=== PATIENT | female | born 1975 | race Caucasian/White ===

== ENCOUNTER 2025-06-06 11:27 | Emergency (ER) | payer MEDICARE, MEDICAID, SELFPAY ==
[2025-06-06 11:26] VITALS: BP 156/69
[2025-06-06 11:27] VITALS: BP 156/69; PULSE 48; TEMP 36.6; O2SAT 100; BMI 29.1
[2025-06-06 11:31] VITALS: PULSE 69
--- NOTE | 2025-06-06 11:31 | ECG_ITS ---
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 Measurements Intervals [place] Rate: 53 P: 66 [place]: 134 QRS: 38 QRSD: 94 T: 24 QT: 432 QTc: 415 Interpretive Statements 1100 Sinus rhythm 1102 Sinus arrhythmia 4068 Nonspecific Twave abnormality 9130 borderline ECG No previous ECG available for comparison Electronically Signed On 06-06-2025 20:38:21 EDT by VICTORINO FUNES M.D.
--- OUTSIDE RECORDS SUMMARY | 2025-06-06 11:32 | XMS_ITS | Encounter Summary ---
Author Organization [facility] Address [address] [place] [address] Care Team Providers Care Narcotics Investigator Name Role Phone Michael Bobby DO, David Grant Primary Care Pro vider Rosie Calzada MD Unavailable [phone] Ryder Quintanilla MD Unavailable [phone] Derick Roberson DO Unavailable Ryder Quintanilla MD Primary Care Provider [facility] [place] [facility] Unavailable Unavailable Nery Stahl MD Unavailable Source Comments In the event this information is protected by the Federal Confidentiality of Alcohol and Drug AbusePatient Records regulations: The Federal rules restrict any use of the information to criminally investigate or prosecute any alcohol or drug abuse patient.[facility] Encounter Details Date Type Department Care Team (Late st Contact Info) Description 04/18/2022 Patient Msg Cardiology [address] [place] [address] Derick Roberson DO [address] [place] [address] skin biopsy Social History Tobacco Use Types Packs/Day Years Used Date Smoking Tobacco: Some Days Cigarettes Started: 1990 Smokeless Tobacco: Never Alcohol Use Standard Drinks/Week Comments Not Currently 6 (1 standard drink = 0.6 oz pur e alcohol) 1-2 times weekly PHQ-2 Answer Date Recorded PHQ-2 score 5 03/07/2022 Area Deprivation Index Answer Date John rded National Score (1-100), lower number is lower ri sk Not on file 06/14/2021 State Score (1-10), lower number is lower risk N ot on file 06/14/2021 Data from: https://www.neighborhoodatlas.medicine.[facility].edu/. Last address used for calculation Not on file 06/14/2021 Comments No Sex and Gender Information Value Date Recorded Sex Assigned at Female 10/09/2021 11:25 PM EST Legal Sex Female 10:05 AM EST Gender Identity Female 10/09/2021 11:25 PM EST Sexual Orientation Straight 10/09/2021 11 :25 PM EST COVID-19 Exposure Response Date Recorded In the last 10 days, have yo u been in contact with someone who was confirmed or suspected to have Coronavirus/COVID-19? No / Unsure 04/02/2022 12:41 PM EDT documented as of this encounter Plan of Treatment Upcoming Encounters Date Type Department Care Team (Late st Contact Info) Description 06/22/2025 3:00 PM EDT Office Visit Neurology [address] [id number] Tristan Diaz MD [address] [place] [address] Muscle Weakness documented as of this encounter Visit Diagnoses Not on filedocumented in this encounter Care Teams Narcotics Investigator Relationship Specialty Start Date End Date Primitivo Rodriguez Jr., DO [address] [place] [phone] PCP - General Rheumatology 12/28/21 12/15/23 Rosie Calzada MD [address] [place] [phone] PCP - Endocrinology Endocrinology 12/28/21 Ryder Quintanilla MD [address] [place] [phone] PCP - Resident Neurology 12/28/21 07/27/24 Ryder Quintanilla MD [address] [place] [address] PCP - General Neurology 12/16/23 Derick Roberson DO [address] [place] [address] Primary Staff Physician Cardiology 12/28/21 [facility] [place] [facility] [address] [facility], [address] Referring 12/16/23 Nery Stahl MD [address] [facility] [place] [address] Neurology 07/28/24 documented as of this encounter
--- OUTSIDE RECORDS SUMMARY | 2025-06-06 11:32 | XMS_ITS | Encounter Summary ---
Author Organization [facility] Address [address] [place] [address] Care Team Providers Care Hospital Ward Clerk Name Role Phone Michael Bobby DO, David Grant Primary Care Pro vider Rosie Calzada MD Unavailable [phone] Ryder Quintanilla MD Unavailable [phone] Derick Roberson DO Unavailable Ryder Quintanilla MD Primary Care Provider [facility] [place] [facility] Unavailable Unavailable Nery Stahl MD Unavailable Source Comments In the event this information is protected by the Federal Confidentiality of Alcohol and Drug AbusePatient Records regulations: The Federal rules restrict any use of the information to criminally investigate or prosecute any alcohol or drug abuse patient.[facility] Encounter Details Date Type Department Care Team (Late st Contact Info) Description 03/01/2022 Get Medical Advice Cardiology [address] [place] [address] Derick Roberson DO [address] [place] [address] Recent EKG findings Social History Tobacco Use Types Packs/Day Years Used Date Smoking Tobacco: Some Days Cigarettes Started: 1990 Smokeless Tobacco: Never Alcohol Use Standard Drinks/Week Comments Not Currently 6 (1 standard drink = 0.6 oz pur e alcohol) 1-2 times weekly PHQ-2 Answer Date Recorded PHQ-2 score 6 09/24/2021 Area Deprivation Index Answer Date John rded National Score (1-100), lower number is lower ri sk Not on file 06/14/2021 State Score (1-10), lower number is lower risk N ot on file 06/14/2021 Data from: https://www.neighborhoodatlas.medicine.[facility]/. Last address used for calculation Not on [...] suspected to have Coronavirus/COVID-19? No / Unsure 03/04/2022 11:05 AM EDT documented as of this encounter Miscellaneous Notes * Telephone Encounter - Romina Gay - 03/01/2022 4:13 PM EDT Images from the original note were not included. EKG Tracing saved in EP Outside Report Uploaded to Scanned Docs Romina Sylvester [employer] Transportation Director documented in this encounter Plan of Treatment Upcoming Encounters Date Type Department Care Team (Late st Contact Info) Description 06/22/2025 3:00 PM EDT Office Visit Neurology [address] [place] [address] Tristan Diaz MD [address] [place] [address] Muscle Weakness documented as of this encounter Visit Diagnoses Not on filedocumented in this encounter Care Teams Hospital Ward Clerk Relationship Specialty Start Date End Date Primitivo Rodriguez Efra Bobby, DO [address] [place] [phone] PCP - General Rheumatology 12/28/21 12/15/23 Rosie Calzada MD [address] [facility] [address] [place] [address] PCP - Endocrinology Endocrinology 12/28/21 Ryder Quintanilla MD [address] [phone] PCP - Resident Neurology 12/28/21 07/27/24 Ryder Quintanilla MD [address] [place] [address] PCP - General Neurology 12/16/23 Derick Roberson DO [address] [place], [place] [phone] Primary Staff Physician Cardiology 12/28/21 [facility] [place] [facility] [address] [facility], [address] Referring 12/16/23 Nery Stahl MD [address] [place] [address] Neurology 07/28/24 documented as of this encounter
--- OUTSIDE RECORDS SUMMARY | 2025-06-06 11:32 | XMS_ITS | Encounter Summary ---
Author Organization [facility] Address [address] [place] [address] Care Team Providers Care Ruling Technician Name Role Phone Michael Bobby DO, David Grant Primary Care Pro vider Rosie Calzada MD Unavailable [phone] Ryder Quintanilla MD Unavailable Derick Roberson DO Unavailable [phone] Ryder Quintanilla MD Primary Care Provider [facility] [place] [facility] Unavailable Unavailable Nery Stahl MD Unavailable Source Comments In the event this information is protected by the Federal Confidentiality of Alcohol and Drug AbusePatient Records regulations: The Federal rules restrict any use of the information to criminally investigate or prosecute any alcohol or drug abuse patient.[facility] Encounter Details Date Type Department Care Team (Late st Contact Info) Description 01/14/2022 Get Medical Advice Cardiology [address] [place] [address] Derick Roberson DO [address] [place] [address] Tilt table results and ECG Social History Tobacco Use Types Packs/Day Years Used Date Smoking Tobacco: Every Day Cigarettes 0.5 34.5 Started: 1991 Smokeless Tobacco: Never Alcohol Use Standard Drinks/Week Comments Yes 6 (1 standard drink = 0.6 oz pur e alcohol) 1-2 times weekly PHQ-2 Answer Date Recorded PHQ-2 score 6 09/24/2021 Area Deprivation Index Answer Date John rded National Score (1-100), lower number is lower ri sk Not on file 06/14/2021 State Score (1-10), lower number is lower risk N ot on file 06/14/2021 Data from: https://www.neighborhoodatlas.medicine.[facility].edu/. Last address used for calculation Not on file 06/14/2021 Comments No Sex and Gender Information Value Date Recorded Sex Assigned at Female 10/09/2021 11:25 PM EST Legal Sex Female 10:05 AM EST Gender Identity Female 10/09/2021 11:25 PM EST Sexual Orientation Straight 10/09/2021 11 :25 PM EST COVID-19 Exposure Response Date Recorded In the last month, have you been in contact with someone who was confirmed or suspected to have Coronavirus / COVID-19? No / Unsure 01/11/2022 8:15 AM EST documented as of this encounter Plan of Treatment Upcoming Encounters Date Type Department Care Team (Late st Contact Info) Description 06/22/2025 3:00 PM EDT Office Visit Neurology [address] [place], [place] [phone] Tristan Diaz MD [address] [place] [address] Muscle Weakness documented as of this encounter Visit Diagnoses Not on filedocumented in this encounter Care Teams Ruling Technician Relationship Specialty Start Date End Date Primitivo Rodriguez Jr., [address] [place] [phone] PCP - General Rheumatology 12/28/21 12/15/23 Rosie Calzada MD [address] [place] [address] [place] [address] PCP - Endocrinology Endocrinology 12/28/21 Ryder Quintanilla MD [address] [place] [address] PCP - Resident Neurology 12/28/21 07/27/24 Ryder Quintanilla MD [address] [place] [address] PCP - General Neurology 12/16/23 Derick Roberson DO [address] [place] [address] Primary Staff Physician Cardiology 12/28/21 [facility] [place] [facility] [address] [place], [address] Referring 12/16/23 Nery Stahl MD [address] [place] [address] Neurology 07/28/24 documented as of this encounter
--- OUTSIDE RECORDS SUMMARY | 2025-06-06 11:32 | XMS_ITS | Encounter Summary ---
Author Organization [facility] Address [address] [place] [address] Care Team Providers Care Skin Lap Bonder Name Role Phone Michael Bobby DO, David Grant Primary Care Pro vider Rosie Calzada MD Unavailable [phone] Ryder Quintanilla MD Unavailable Derick Roberson DO Unavailable Ryder Quintanilla MD Primary Care Provider [facility] [place] [facility] Unavailable Unavailable Nery Stahl MD Unavailable Source Comments In the event this information is protected by the Federal Confidentiality of Alcohol and Drug AbusePatient Records regulations: The Federal rules restrict any use of the information to criminally investigate or prosecute any alcohol or drug abuse patient.[facility] Encounter Details Date Type Department Care Team (Late st Contact Info) Description 01/02/2022 Get Medical Advice Cardiology [address] [place] [address] Derick Roberson DO [address] [place] [address] Bradycardia? Social History Tobacco Use Types Packs/Day Years [...] N ot on file 06/14/2021 Data from: https://www.neighborhoodatlas.medicine.[facility].edu/. Last address used for calculation Not on [...] have Coronavirus / COVID-19? No / Unsure 12/28/2021 9:59 AM EST documented as of this encounter Plan of Treatment Upcoming Encounters Date Type Department Care Team (Late st Contact Info) Description 06/22/2025 3:00 PM EDT Office Visit Neurology [address] [place] [address] Tristan Diaz MD [address] [place] [address] Muscle Weakness documented as of this encounter Visit Diagnoses Not on filedocumented in this encounter Care Teams Skin Lap Bonder Relationship Specialty Start Date End Date Primitivo Rodriguez Jr., [address] [place] [phone] PCP - General Rheumatology 12/28/21 12/15/23 Rosie Calzada MD [address] [place] [phone] PCP - Endocrinology Endocrinology 12/28/21 Ryder Quintanilla MD [address] [place] [phone] PCP - Resident Neurology 12/28/21 07/27/24 Ryder Quintanilla MD [address] [place] [address] PCP - General Neurology 12/16/23 Derick Roberson DO [address] [place] [address] Primary Staff Physician Cardiology 12/28/21 [facility] [place] [facility] [address] [place], [address] Referring 12/16/23 Nery Stahl MD [address] [facility] [address] Neurology 07/28/24 documented as of this encounter
--- OUTSIDE RECORDS SUMMARY | 2025-06-06 11:32 | XMS_ITS | Encounter Summary ---
Author Organization [facility] Address [address] [place] [address] Care Team Providers Care Informatics Developer Name Role Phone Michael Bobby DO, David Grant Primary Care Pro vider Rosie Calzada MD Unavailable [phone] Ryder Quintanilla MD Unavailable Derick Roberson DO Unavailable [phone] Ryder Quintanilla MD Primary Care Provider [facility] [place] [facility] Unavailable Unavailable Nery Stahl MD Unavailable Source Comments In the event this information is protected by the Federal Confidentiality of Alcohol and Drug AbusePatient Records regulations: The Federal rules restrict any use of the information to criminally investigate or prosecute any alcohol or drug abuse patient.[facility] Encounter Details Date Type Department Care Team (Late st Contact Info) Description 10/15/2022 Get Medical Advice Cardiology [address] [place] [address] Derick Roberson DO [address] [place] [address] Neurogenic orthostatic hypotension? Social History Tobacco Use Types Packs/Day Years [...] N ot on file 06/14/2021 Data from: https://www.neighborhoodatlas.medicine.[facility]/. Last address used for calculation Not on file 06/14/2021 Comments No Sex and Gender Information Value Date Recorded Sex Assigned at Female 10/09/2021 11:25 PM EST Legal Sex Female 10:05 AM EST Gender Identity Female 10/09/2021 11:25 PM EST Sexual Orientation Straight 10/09/2021 11 :25 PM EST documented as of this encounter Plan of Treatment Upcoming Encounters Date Type Department Care Team (Late st Contact Info) Description 06/22/2025 3:00 PM EDT Office Visit Neurology [address] [place] [address] Tristan Diaz MD [address] [phone] Muscle Weakness documented as of this encounter Visit Diagnoses Not on filedocumented in this encounter Care Teams Informatics Developer Relationship Specialty Start Date End Date Primitivo Rodriguez Jr., DO [address] [place] [address] PCP - General Rheumatology 12/28/21 12/15/23 Rosie Calzada MD [address] [phone] PCP - Endocrinology Endocrinology 12/28/21 Ryder Quintanilla MD [address] [place] [address] PCP - Resident Neurology 12/28/21 07/27/24 Ryder Quintanilla MD [address] [place] [address] PCP - General Neurology 12/16/23 Derick Roberson DO [address] [place] [address] Primary Staff Physician Cardiology 12/28/21 [facility] [place] [facility] [address] [place], [address] Referring 12/16/23 Nery Stahl MD [address] [place] [address] Neurology 07/28/24 documented as of this encounter
--- OUTSIDE RECORDS SUMMARY | 2025-06-06 11:32 | XMS_ITS | Encounter Summary ---
Author Organization [facility] Address [address] [place] [address] Care Team Providers Care Web Press Operator Name Role Phone Michael Bobby DO, David Grant Primary Care Pro vider Rosie Calzada MD Unavailable [phone] Ryder Quintanilla MD Unavailable Derick Roberson DO Unavailable [phone] Ryder Quintanilla MD Primary Care Provider [facility] [place] [facility] Unavailable Unavailable Nery Stahl MD Unavailable Source Comments In the event this information is protected by the Federal Confidentiality of Alcohol and Drug AbusePatient Records regulations: The Federal rules restrict any use of the information to criminally investigate or prosecute any alcohol or drug abuse patient.[facility] Encounter Details Date Type Department Care Team (Late st Contact Info) Description 04/02/2022 Patient Msg Cardiology [address] [place] [address] Derick Roberson DO [address] [place] [address] test results Social History Tobacco Use Types Packs/Day Years [...] N ot on file 06/14/2021 Data from: https://www.neighborhoodatlas.medicine.[facility].edu/. Last address used for calculation Not [...] 3:00 PM EDT Office Visit Neurology [address] [phone] Tristan Diaz MD [address] [place] [address] Muscle Weakness documented as of this encounter Visit Diagnoses Not on filedocumented in this encounter Care Teams Web Press Operator Relationship Specialty Start Date End Date Primitivo Rodriguez Jr., DO [address] [place] [phone] PCP - General Rheumatology 12/28/21 12/15/23 Rosie Calzada MD [address] [place] [phone] PCP - Endocrinology Endocrinology 12/28/21 Ryder Quintanilla MD [address] [place] [phone] PCP - Resident Neurology 12/28/21 07/27/24 Ryder Quintanilla MD [address] [place] [address] PCP - General Neurology 12/16/23 Derick Roberson DO [address] [place] [address] Primary Staff Physician Cardiology 12/28/21 [facility] [place] [facility] [address] [facility], [address] Referring 12/16/23 Nery Stahl MD [address] [facility] [place] [address] Neurology 07/28/24 documented as of this encounter
--- OUTSIDE RECORDS SUMMARY | 2025-06-06 11:32 | XMS_ITS | Clinical Summary ---
Author Organization [facility] Address [address] [place] [address] Care Team Providers Care Menagerie Superintendent Name Role Phone Rosie Calzada MD Unavailable [phone] Derick Roberson DO Unavailable [phone] Ryder Quintanilla MD Primary Care Provider [facility] [place] [facility] Unavailable Unavailable Nery Stahl MD Unavailable Allergies No known active allergies Medications estradiol (ESTRACE) 2 mg tablet Take 2 mg by mouth once daily. 06/09/2017 Active Omeprazole 40 mg capsule Take 40 mg by mouth once daily. 04/01/2017 Active levothyroxine (SYNTHROID) 25 mcg tablet Take 25 mcg by mouth once daily. 01/16/2021 Active venlafaxine XR (EFFEXOR XR) 225 mg tr24 Take 1 tablet by mouth once daily. 02/07/2021 Active ondansetron (ZOFRAN) 4 mg tablet Take by mouth. TAKE 1 TABLET BY MOUTH EVERY 8 HOURS NEEDED FOR NAUSEA 10/18/2021 Active metoprolol succinate ER (TOPROL XL) 100 mg Take 100 mg by mouth once daily. 12/11/2021 Active predniSONE (DELTASONE) 5 mg tablet Take 10 mg by mouth once daily. Active clobetasol (TEMOVATE) 0.05 % cream Apply to affected area twice daily. 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 I ordered a lipid profile. I would like her to be fasting for this study. Those results will be forthcoming. I would have a very low threshold for starting her on statin therapy. Hyperprolactinemia 08/23/2019 Pituitary tumor 07/30/2019 Punctate keratitis, bilateral 05/12/2019 Pituitary microadenoma 01/29/2019 Conjunctival cyst of left eye 01/29/2019 Anxiety disorder 10/27/2018 Visual disturbances 10/27/2018 Generalized headaches 10/27/2018 Family History Medical History Relation Comments Diabetes Father Cataract Paternal Grandmother No Ocular Disease No Family History Relation Status Comments Father Paternal Grandmother Social History Tobacco Use Types Packs/Day Years Used Date Smoking Tobacco: Former Cigarettes S tarted: 1990 Smokeless Tobacco: Current Comments:vapes Alcohol Use Standard Drinks/Week Comments Not Currently 6 (1 standard drink = 0.6 oz pur e alcohol) 1-2 times weekly PHQ-2 Answer Date Recorded PHQ-2 score 5 03/07/2022 Area Deprivation Index Answer Date John rded National Score (1-100), lower number is lower ri sk 59 05/30/2025 State Score (1-10), lower number is lower risk 4 05/30/2025 Data from: https://www.neighborhoodatlas.medicine.[facility].edu/. Last address used for calculation [address] 05/30/2025 Comments No Sex and Gender Information Value Date Recorded Sex Assigned at Female 10/09/2021 11:25 PM EST Legal Sex Female 10:05 AM EST Gender Identity Female 10/09/2021 11:25 PM EST Sexual Orientation Straight 10/09/2021 11 :25 PM EST Last Filed Vital Signs Vital Sign Reading Time Taken Comments Blood Pressure 109/89 12/17/2024 10:31 AM EST Pulse 86 12/17/2024 10:31 AM EST Temperature 36.6 C (97.9 F) 12/17/2024 10:31 AM EST Respiratory Rate 18 07/09/2024 8:52 AM EDT Oxygen Saturation 99% 12/17/2024 10:31 AM EST Inhaled Oxygen Concentration - - Weight 84.4 kg (186 lb 1.1 oz) 12/17/2024 10:31 AM EST Height 167.6 cm (5' 6 ) 12/17/2024 10:31 AM EST Body Mass Index 30.03 12/17/2024 10:31 AM EST Plan of Treatment Upcoming Encounters Date Type Department Care Team (Late st Contact Info) Description 06/22/2025 3:00 PM EDT Office Visit Neurology [address] [phone] Tristan Diaz MD [address] [place], [place] [phone] Muscle Weakness Health Maintenance Due Date Last Done Comments Annual PCP Team Chronic Dise ase Visit 1992 Hepatitis C Screening 1992 DTaP,Tdap,Td Vaccine (1 - Tdap) 1993 Hepatitis B Vaccine (1 of 3 - 19+ 3-dose series) 1993 Cervical Cancer Screening 1995 Mammogram Screening 2014 Medicare Annual Wellness Visit 10/31/2016 CT Colonography 2019 Cologuard (FIT-DNA) 2019 Colonoscopy 2019 Colorectal Cancer Screening 2019 Fecal Occult Blood 2019 Sigmoidoscopy 2019 Covid-19 Vaccine (1 - 2023-2 5 season) 2024 Pneumococcal Vaccine: 50+ (1 of 1 - PCV) 2024 Shingrix Vaccine (1 of 2) 2024 Influenza Vaccine (#1) 2025 Lipid Screening 01/05/2026 01/05/2021 Diabetes Screening 06/02/2027 06/02/2024, 0 12/05/2023, 04/15/2023, Additional history exists HIV Screening Completed 08/29/2017, 07/21/2017 Procedures Procedure Name Priority Date/Time Associated Diagnosis Comments HIV 1/2 COMBO WITH REFLEX TO DIFFERENTIATION Routine 08/29/2017 11:09 AM EDT Exposure to HIV BASIC METABOLIC PANEL Routine 07/21/2017 12:25 PM EDT Exposure to HIV from Last 3 Months or Most Recently Relevant to Health Maintenance Results * HIV 1,2 COMBO (AG/AB) (08/29/2017 11:09 AM EDT) HIV 12 Combo (Ag/Ab) Non Reactive Non Reactive 08/29/2017 10:06 PM EDT [facility] Comment: (NOTE) HIV Information: [place] Rev. Code 3701.243(E): This information has been disclosed to you from confidential records protected from disclosure by state law. You shall make no further disclosure of this information without the specific, written, and informed release of the individual to whom it pertains, or as otherwise permitted by state law. A general authorization for the release of medical or other information is not sufficient for the purpose of the release of HIV test results or diagnoses. Blood specimen (specimen) BLOOD SPECIMEN / Unknown 08/29/2017 11:09 AM EDT 08/29/2017 11:11 AM EDT us Bonnie George MD LABORATORY Final Resul t [facility] [address] [place] [address] * BASIC METABOLIC PNL (07/21/2017 12:25 PM EDT) Glucose 97 74 - 99 mg/dL 07/21/2017 2:46 PM EDT [facility] Comment: The [place] Diabetes Association (ADA) provides guidance for cutoff values for fasting glucose and random glucose. The ADA defines fasting as no caloric intake for at least 8 hours. Fasting plasma glucose results between 100 to 125 mg/dL indicate increased risk for diabetes (prediabetes). Fasting plasma glucose results greater than or equal to 126 mg/dL meet the criteria for diagnosis of diabetes. In the absence of unequivocal hyperglycemia, results should be confirmed by repeat testing. In a patient with classic symptoms of hyperglycemia or hyperglycemic crisis, random plasma glucose results greater than or equal to 200 mg/dL meet the criteria for diagnosis of diabetes. Reference: Standards of Medical Care in Diabetes 2016, [place] Diabetes Association. Diabetes Care. 2016.39(Suppl 1). BUN 7 7 - 21 mg/dL 07/21/2017 2:46 PM [facility] Creatinine 0.84 0.58 - 0.96 mg/dL 07/21/2017 2:[address] [facility] Sodium 143 136 - 144 mmol/L 07/21/2017 2:[address] [facility] Potassium 4.9 3.7 - 5.1 mmol/L 07/21/2017 2:[address] [facility] Chloride 103 97 - 105 mmol/L 07/21/2017 2:[address] [facility] CO2 27 22 - 30 mmol/L 07/21/2017 2:[address] [facility] Anion Gap 13 9 - 18 mmol/L 07/21/2017 2:[address] [facility] Calcium 10.0 8.5 - 10.2 mg/dL 07/21/2017 2:[address] [facility] eGFR- >60 07/21/2017 2:[address] [facility] eGFR-All Other Races >60 . 07/21/2017 2:[address] [facility] Comment: eGFR (Estimated GFR) Units of measure: mL/min/1.73 meters squared eGFR is derived from the reexpressed MDRD Study equation using the following parameters: serum creatinine, age, gender and race. The creatinine assay has been calibrated to be traceable to IDMS. An eGFR <60 mL/min/1.73m2 for >3 months is consistent with chronic kidney disease. Refer to KDOQI guidelines for clinical interpretation. In patients with unstable renal function, e.g. those with acute kidney injury, the eGFR may not accurately reflect actual GFR. Blood specimen (specimen) BLOOD SPECIMEN / Unknown 07/21/2017 12:25 PM EDT 07/21/2017 12:27 PM EDT us Bonnie George MD LABORATORY Final Resul t [facility] [address] [place] [address] from Last 3 Months or Most Recently Relevant to Health Maintenance Insurance MEDICARE Member Subscriber Plan / Payer (Ef fective 2016-Present) Name:Hortensia Fuchs Member ID:[id number] Relation to Subscriber:Self Name:Hortensia Fuchs Subscriber ID:[id number] Payer ID:Not on file Group ID:Not on file Type:Medicare Address: [place] [id number] [place]ICA[place] Care Teams Menagerie Superintendent Relationship Specialty Start Date End Date Rosie Calzada MD [address] [place] [address] [address] [place] [phone] PCP - Endocrinology Endocrinology 12/28/21 Ryder Quintanilla MD [address] [place] [address] PCP - General Neurology 12/16/23 Derick Roberson DO [address] [place] [address] Primary Staff Physician Cardiology 12/28/21 [facility], [place] [facility], [address] Referring 12/16/23 Nery Stahl MD [address] [place] [address] Neurology 07/28/24
--- OUTSIDE RECORDS SUMMARY | 2025-06-06 11:32 | XMS_ITS | Encounter Summary ---
Author Organization [facility] Address [address] [place] [address] Care Team Providers Care Pipe Organ Mechanic Name Role Phone Rosie Calzada MD Unavailable [phone] Derick Roberson DO Unavailable [phone] Ryder Quintanilla MD Primary Care Provider [facility] [place] [facility] Unavailable Unavailable Nery Stahl MD Unavailable Source Comments In the event this information is protected by the Federal Confidentiality of Alcohol and Drug AbusePatient Records regulations: The Federal rules restrict any use of the information to criminally investigate or prosecute any alcohol or drug abuse patient.[facility] Encounter Details Date Type Department Care Team (Late st Contact Info) Description 09/26/2024 [place] [address] Provider, [facility] MRI Screening Questionnaire Completion Required Social History Tobacco Use Types Packs/Day Years Used Date Smoking Tobacco: Some Days Cigarettes Started: 1990 Smokeless Tobacco: Never Alcohol Use Standard Drinks/Week Comments Not Currently 6 (1 standard drink = 0.6 oz pur e alcohol) 1-2 times weekly PHQ-2 Answer Date Recorded PHQ-2 score 5 03/07/2022 Area Deprivation Index Answer Date John rded National Score (1-100), lower number is lower ri sk 70 08/31/2024 State Score (1-10), lower number is lower risk 5 08/31/2024 Data from: https://www.neighborhoodatlas.medicine.[facility].edu/. Last address used for calculation [address] 08/31/2024 Comments No Sex and Gender Information Value [...] 3:00 PM EDT Office Visit Neurology [address] [phone] Tristan Diaz MD [address] [place] [address] Muscle Weakness documented as of this encounter Visit Diagnoses Not on filedocumented in this encounter Care Teams Pipe Organ Mechanic Relationship Specialty Start Date End Date Rosie Calzada MD [address] [place] [phone] PCP - Endocrinology Endocrinology 12/28/21 Ryder Quintanilla MD [address] [place] [address] PCP - General Neurology 12/16/23 Derick Roberson DO [address] [phone] Primary Staff Physician Cardiology 12/28/21 [place] [place] [facility] [address] [place], [address] Referring 12/16/23 Nery Stahl MD [address] [place] [address] Neurology 07/28/24 documented as of this encounter
--- OUTSIDE RECORDS SUMMARY | 2025-06-06 11:33 | XMS_ITS | Encounter Summary ---
Author Organization [facility] Address [address] [place] [address] Care Team Providers Care Hog Confinement System Manager Name Role Phone Michael Bobby DO, David Grant Primary Care Pro vider Rosie Calzada MD Unavailable [phone] Ryder Quintanilla MD Unavailable [phone] Derick Roberson DO Unavailable Ryder Quintanilla MD Primary Care Provider [facility] [place] [facility] Unavailable Unavailable Nery Stahl MD Unavailable Source Comments In the event this information is protected by the Federal Confidentiality of Alcohol and Drug AbusePatient Records regulations: The Federal rules restrict any use of the information to criminally investigate or prosecute any alcohol or drug abuse patient.[facility] Encounter Details Date Type Department Care Team (Late st Contact Info) Description 01/15/2022 Patient Msg Cardiology [address] [place] [address] Derick Roberson DO [address] [place] [address] tilt test Social History Tobacco Use Types Packs/Day Years [...] N ot on file 06/14/2021 Data from: https://www.neighborhoodatlas.medicine.[facility].edu/. Last address used for calculation Not [...] 3:00 PM EDT Office Visit Neurology [address] [place] [address] Tristan Diaz MD [address] [place] [address] Muscle Weakness documented as of this encounter Visit Diagnoses Not on filedocumented in this encounter Care Teams Hog Confinement System Manager Relationship Specialty Start Date End Date Primitivo Rodriguez Jr., [address] [place] [phone] PCP - General Rheumatology 12/28/21 12/15/23 Rosie Calzada MD [address] [place] [phone] PCP - Endocrinology Endocrinology 12/28/21 Ryder Quintanilla MD [address] [place] [phone] PCP - Resident Neurology 12/28/21 07/27/24 Ryder Quintanilla MD [address] [place] [address] PCP - General Neurology 12/16/23 Derick Roberson DO [address] [place] [address] Primary Staff Physician Cardiology 12/28/21 [facility] [place] [facility] [address] [place], [address] Referring 12/16/23 Nery Stahl MD [address] [facility] [address] Neurology 07/28/24 documented as of this encounter
--- OUTSIDE RECORDS SUMMARY | 2025-06-06 11:33 | XMS_ITS | Encounter Summary ---
Author Organization [facility] Address [address] [place] [address] Care Team Providers Care Agricultural Technician Name Role Phone Michael Bobby DO, David Grant Primary Care Pro vider Rosie Calzada MD Unavailable [phone] Ryder Quintanilla MD Unavailable [phone] Derick Roberson DO Unavailable [phone] Ryder Quintanilla MD Primary Care Provider [facility] [place] [facility] Unavailable Unavailable Nery Stahl MD Unavailable Source Comments In the event this information is protected by the Federal Confidentiality of Alcohol and Drug AbusePatient Records regulations: The Federal rules restrict any use of the information to criminally investigate or prosecute any alcohol or drug abuse patient.[facility] Encounter Details Date Type Department Care Team (Latest Contact Info) Description 03/25/2022 Get Medical Advice Cardiology [address] [place] [address] Derick Roberson DO [address] [phone] Was an Echocardigram done?? Social History Tobacco Use Types Packs/Day Years [...] N ot on file 06/14/2021 Data from: https://www.neighborhoodatlas.medicine.[facility].edu/. Last address used for calculation Not [...] suspected to have Coronavirus/COVID-19? No / Unsure 03/08/2022 1:49 PM EDT documented as of this encounter Plan of Treatment Upcoming Encounters Date Type Department Care Team (Late st Contact Info) Description 06/22/2025 3:00 PM EDT Office Visit Neurology [address] [place] [address] Tristan Diaz MD [address] [place] [address] Muscle Weakness documented as of this encounter Visit Diagnoses Not on filedocumented in this encounter Care Teams Agricultural Technician Relationship Specialty Start Date End Date Primitivo Rodriguez Jr., [address] [place] [phone] PCP - General Rheumatology 12/28/21 12/15/23 Rosie Calzada MD [address] [place] [phone] PCP - Endocrinology Endocrinology 12/28/21 Ryder Quintanilla MD [address] [place] [address] PCP - Resident Neurology 12/28/21 07/27/24 Ryder Quintanilla MD [address] [place] [address] PCP - General Neurology 12/16/23 Derick Roberson DO [address] [place] [address] Primary Staff Physician Cardiology 12/28/21 [facility] [place] [facility] [address] [place], [address] Referring 12/16/23 Nery Stahl MD [address] [place] [address] Neurology 07/28/24 documented as of this encounter
--- OUTSIDE RECORDS SUMMARY | 2025-06-06 11:33 | XMS_ITS | Encounter Summary ---
Author Organization [facility] Address [address] [place] [address] Care Team Providers Care Job Placement Officer Name Role Phone Frank Payne DO Primary Care Provider + Michael Bobby DO, David Grant Primary Care Pro vider Rosie Calzada MD Unavailable [phone] Ryder Quintanilla MD Unavailable [phone] Derick Roberson DO Unavailable [phone] Ryder Quintanilla MD Primary Care Provider [facility] [place] [facility] Unavailable Unavailable Nery Stahl MD Unavailable Source Comments In the event this information is protected by the Federal Confidentiality of Alcohol and Drug AbusePatient Records regulations: The Federal rules restrict any use of the information to criminally investigate or prosecute any alcohol or drug abuse patient.[facility] Encounter Details Date Type Department Care Team (Late st Contact Info) Description 07/05/2021 Patient Msg Ophthalmology [address] [place] [address] Pura Thomas MD [facility] [phone] RE: Appointment Cancellation Request Social History Tobacco Use Types Packs/Day Years Used Date Smoking Tobacco: Some Days Cigarettes Smokeless Tobacco: Never Alcohol Use Standard Drinks/Week Comments Yes 6 (1 standard drink = 0.6 oz pur e alcohol) 1-2 times weekly Area Deprivation Index Answer Date John rded National Score (1-100), lower number is lower ri sk Not on file 06/14/2021 State Score (1-10), lower number is lower risk N ot on file 06/14/2021 Data from: https://www.neighborhoodatlas.[facility]/. Last address used for calculation Not on file 06/14/2021 Comments Unknown Sex and Gender Information Value Date Recorded [...] have Coronavirus / COVID-19? No / Unsure 06/14/2021 12:29 PM EDT documented as of this encounter Plan of Treatment Upcoming Encounters Date Type Department Care Team (Late st Contact Info) Description 06/22/2025 3:00 PM EDT Office Visit Neurology [address] [place] [address] Tristan Diaz MD [address] [place] [address] Muscle Weakness documented as of this encounter Visit Diagnoses Not on filedocumented in this encounter Care Teams Job Placement Officer Relationship Specialty Start Date End Date Frank Payne DO [address] [place] [address] PCP - General Internal Medicine 10/27/18 12/27/21 Primitivo Rodriguez Jr., DO [address] [place] [phone] PCP - General Rheumatology 12/28/21 12/15/23 Rosie Calzada MD [address] [phone] PCP - Endocrinology Endocrinology 12/28/21 Ryder Quintanilla MD [address] [phone] PCP - Resident Neurology 12/28/21 07/27/24 Ryder Quintanilla MD [address] [place] [address] PCP - General Neurology 12/16/23 Derick Roberson DO [address] [place] [address] Primary Staff Physician Cardiology 12/28/21 [facility], [place] [facility] [address] [place], [address] Referring 12/16/23 Nery Stahl MD [address] [place] [address] Neurology 07/28/24 documented as of this encounter
--- OUTSIDE RECORDS SUMMARY | 2025-06-06 11:33 | XMS_ITS | Encounter Summary ---
Author Organization [facility] Address [address] [place] [address] Care Team Providers Care Research Project Coordinator Name Role Phone Frank Payne DO Primary Care Provider + Michael Bobby DO, David Grant Primary Care Pro vider Rosie Calzada MD Unavailable [phone] Ryder Quintanilla MD Unavailable Derick Roberson DO Unavailable [phone] Ryder Quintanilla MD Primary Care Provider [facility], [place] [facility] Unavailable Unavailable Nery Stahl MD Unavailable Source Comments In the event this information is protected by the Federal Confidentiality of Alcohol and Drug AbusePatient Records regulations: The Federal rules restrict any use of the information to criminally investigate or prosecute any alcohol or drug abuse patient.[facility] Encounter Details Date Type Department Care Team (Late st Contact Info) Description 09/26/2021 [facility] Get Medical Advice Rheumatology [address] [phone] Judith Roman MD [address] [place] [address] RE: Test Result Question Social History Tobacco Use Types Packs/Day Years [...] N ot on file 06/14/2021 Data from: https://www.neighborhoodatlas.medicine.[facility].edu/. Last address used for calculation Not [...] have Coronavirus / COVID-19? No / Unsure 09/27/2021 11:03 AM EDT documented as of this encounter Plan of Treatment Upcoming Encounters Date Type Department Care Team (Late st Contact Info) Description 06/22/2025 3:00 PM EDT Office Visit Neurology [address] [place] [address] Tristan Diaz MD [address] [phone] Muscle Weakness documented as of this encounter Visit Diagnoses Not on filedocumented in this encounter Care Teams Research Project Coordinator Relationship Specialty Start Date End Date Frank Payne DO [address] [place] [address] PCP - General Internal Medicine 10/27/18 12/27/21 Primitivo Rodriguez Jr., DO [address] [place] [address] PCP - General Rheumatology 12/28/21 12/15/23 Rosie Calzada MD [address] [place] [address] PCP - Endocrinology Endocrinology 12/28/21 Ryder Quintanilla MD [address] [place] [address] PCP - Resident Neurology 12/28/21 07/27/24 Ryder Quintanilla MD [address] [place] [address] PCP - General Neurology 12/16/23 Derick Roberson DO [address] [place] [address] Primary Staff Physician Cardiology 12/28/21 [facility], [place] [facility] [address] [facility], [address] Referring 12/16/23 Nery Stahl MD [address] [place] [address] Neurology 07/28/24 documented as of this encounter
--- OUTSIDE RECORDS SUMMARY | 2025-06-06 11:33 | XMS_ITS | Encounter Summary ---
Author Organization [facility] Address [address] [place] [address] Care Team Providers Care Information Services Tech Name Role Phone Rosie Calzada MD Unavailable [phone] Derick Roberson DO Unavailable [phone] Ryder Quintanilla MD Primary Care Provider [facility] [place] [facility] Unavailable Unavailable Nery Stahl MD Unavailable Source Comments In the event this information is protected by the Federal Confidentiality of Alcohol and Drug AbusePatient Records regulations: The Federal rules restrict any use of the information to criminally investigate or prosecute any alcohol or drug abuse patient.[facility] Encounter Details Date Type Department Care Team (Late st Contact Info) Description 10/12/2024 Patient Msg Neurological [facility] [address] [id number] Provider, Ccf FMD Referral Social History Tobacco Use Types Packs/Day Years [...] is lower risk 5 08/31/2024 Data from: https://www.neighborhoodatlas.medicine.[facility].edu/. Last address used for calculation [address] 08/31/2024 Comments No Sex and Gender [...] 3:00 PM EDT Office Visit Neurology [address] [id number] Tristan Diaz MD [address] [place] [address] Muscle Weakness documented as of this encounter Visit Diagnoses Not on filedocumented in this encounter Care Teams Information Services Tech Relationship Specialty Start Date End Date Rosie Calzada MD [address] [place] [phone] PCP - Endocrinology Endocrinology 12/28/21 yRder Quintanilla MD [address] [place] [address] PCP - General Neurology 12/16/23 Derick Roberson DO [address] [phone] Primary Staff Physician Cardiology 12/28/21 [facility] [place] [facility] [address] [place], [address] Referring 12/16/23 Nery Stahl MD [address] [place] [address] Neurology 07/28/24 documented as of this encounter
--- OUTSIDE RECORDS SUMMARY | 2025-06-06 11:33 | XMS_ITS | Encounter Summary ---
Author Organization [facility] Address [address] [place] [address] Care Team Providers Care Fur Comber Name Role Phone Frank Payne DO Primary Care Provider + Michael Bobby DO, David Grant Primary Care Pro vider Rosie Calzada MD Unavailable [phone] Ryder Quintanilla MD Unavailable Derick Roberson DO Unavailable [phone] Ryder Quintanilla MD Primary Care Provider [facility] [place] [facility] Unavailable Unavailable Nery Stahl MD Unavailable Source Comments In the event this information is protected by the Federal Confidentiality of Alcohol and Drug AbusePatient Records regulations: The Federal rules restrict any use of the information to criminally investigate or prosecute any alcohol or drug abuse patient.[facility] Encounter Details Date Type Department Care Team (Late st Contact Info) Description 06/18/2021 Get Medical Advice Ophthalmology [address] [place], [place] [phone] Pura Thomas MD [address] [place], [place] [phone] RE: Test Result Question Social History Tobacco [...] N ot on file 06/14/2021 Data from: https://www.neighborhoodatlas.[facility]/. Last address used for calculation Not on [...] PM EDT documented as of this encounter Miscellaneous Notes * Telephone Encounter - Jeanne Duval - 06/19/2021 1:25 PM EDT Pura Thomas MD filed at 05/22/2021 ??2:34 PM Status: Signed ??Conjunctival cyst of left eye Present for years Its been growing over the past year No pain Both eyes itch,tear,burn Patient gets blurry vision on and off restasis 2 xs daily both eyes No falls ?? A/p: 1. Left plica cystic lesion x [address] 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 Quintanilla Patient and Dr. Garcia thinks lesion is larger and referred here Patient has hypothyroidism recently diagnosed To see rheumatology as well (patient thinks maybe has lupus) Patient feels like she has flares and the lesion left medial plica swells as well Derm: diagnosis lichens simplex chronicus Also has h/o raynauds and livedoriticularis + dry eye ?? Exam: Left medial plica cyst ~ 1.2 x 3.5 clear cyst Cristina: 16,16 @ 94 Full motility, no diplopia No Superficial punctate keratopathy (SPK) today ?? Discussed removal in the OR Can return if entire capsule is not removed Appears benign ? Plan Left medial plica excisional biopsy 1.2 cm Mac 30min *need lid speculum, kim* Avoid aspirin, ibuprofen, nsaids, vitamin e , fish oil 2 wks prior and 1 wk post Stop multivitamin, 2 wks prior and 1 wk post ?? Nothing to eat or drink 8 hrs prior to surgery except medicines day of with small sip of water Will need truck driver if having sedation surgery ?? For surgery, [facility] call ?? The patient was offered a surgery/procedure at a [facility] facility. The surgeon/proceduralist and patient have discussed in detail the risk of exposure to and/or potential harm posed by the COVID-19 virus with having a surgery/procedure at this time versus the risk of?? delaying the surgery/ procedure. It is not possible to know either the risk of delaying the surgery or procedure or chance of getting an infection with perfect accuracy, but a joint decision was made between the patient and the surgeon/proceduralist ??to proceed at this time with the scheduled surgery/procedure as indicated on the consent form. ?? An extensive discussion of the risks, benefits, alternatives of the above surgeries was conducted with the patient. The patient understood the risks including, but not limited to: bleeding, infection, scarring, asymmetry, need for future additional surgery, poor cosmesis, worsening dry eyes, orbital hemorrhage causing loss of vision, nerve damage, muscle damage, double vision, complications of anesthesia including loss of life. Discussed with patient these surgeries in most cases are performed with resident and/or fellow participation at the level deemed fit by Dr. Thomas. Patient verbalizes an understanding. The patient wished to proceed with surgery. ?? Post operative course reviewed. 1-2 wks of bruising and swelling. Ice compresses (ie: frozen peas in Ziploc bag with cloth between bag and skin) for15 min every hourfor the first 3 days after surgery; then warm compresses as needed for bruising (from post op days 3-7) Avoid blood thinners including aspirin, Advil, Motrin, Aleve, vitamin E, fish oil at least 2 wks prior to surgery. Antibiotic ointment to eyes and incisions four times a day after surgery for 1 week. No heavy lifting over 15 lbs or any strenuous exercise for 1 wk after surgery. Walking is okay after surgery. ?? documented in this encounter Plan of Treatment Upcoming Encounters Date Type Department Care Team (Late st Contact Info) Description 06/22/2025 3:00 PM EDT Office Visit Neurology [address] [place] [address] Tristan Diaz MD [address] [place], [place] [phone] Muscle Weakness documented as of this encounter Visit Diagnoses Not on filedocumented in this encounter Care Teams Fur Comber Relationship Specialty Start Date End Date Frank Payne DO [address] [place] [address] PCP - General Internal Medicine 10/27/18 12/27/21 [facility] [address] [place] [address] PCP - General Rheumatology 12/28/21 12/15/23 Rosie Calzada MD [address] [address] PCP - Endocrinology Endocrinology 12/28/21 Ryder Quintanilla MD [address] [phone] PCP - Resident Neurology 12/28/21 07/27/24 Ryder Quintanilla MD [address] [place] [address] PCP - General Neurology 12/16/23 Derick Roberson DO [address] [facility] [address] Primary Staff Physician Cardiology 12/28/21 [facility] Referring 12/16/23 Nery Stahl MD [address] [place] [address] Neurology 07/28/24 documented as of this encounter
--- OUTSIDE RECORDS SUMMARY | 2025-06-06 11:33 | XMS_ITS | Encounter Summary ---
Author Organization [facility] Address [address] [place] [address] Care Team Providers Care Lamp Decorator Name Role Phone ElderAmarjit Primary Care Provider [phone] Pcp, Katie SAMUELS Primary Care Provider Unavailabl e Frank Payne DO Primary Care Provider + [facility] Bobby DO, David Grant Primary Care Pro vider Rosie Calzada MD Unavailable [phone] Ryder Quintanilla MD Unavailable Dercik Roberson DO Unavailable [phone] Ryder Quintanilla MD Primary Care Provider [facility] [place] [facility] Unavailable Unavailable Nery Stahl MD Unavailable Source Comments In the event this information is protected by the Federal Confidentiality of Alcohol and Drug AbusePatient Records regulations: The Federal rules restrict any use of the information to criminally investigate or prosecute any alcohol or drug abuse patient.[facility] Encounter Details Date Type Department Care Team (Latest Contact Info) Description 03/13/2005 Prob Sum Review Provider, [facility] Social History Tobacco Use Types Packs/Day Years Used Date Smoking Tobacco: Never Assessed Comments Unknown Sex and Gender Information Value [...] 3:00 PM EDT Office Visit Neurology [address] [place] [address] Tristan Diaz MD [address] [place], [place] [phone] Muscle Weakness documented as of this encounter Visit Diagnoses Not on filedocumented in this encounter Care Teams Lamp Decorator Relationship Specialty Start Date End Date Amarjit Herrmann [address] [place] [address] PCP - General 10/15/04 07/20/17 PcpKatie APRN PCP - General Family Medicine 07/21/17 02/28/18 Frank Payne DO [address] [place] [address] PCP - General Internal Medicine 10/27/18 12/27/21 Primitivo Rodriguez Jr., DO [address] [place] [address] PCP - General Rheumatology 12/28/21 12/15/23 Rosie Calzada MD [address] [place] [phone] PCP - Endocrinology Endocrinology 12/28/21 Ryder Quintanilla MD [address] [facility] [address] [place] [address] PCP - Resident Neurology 12/28/21 07/27/24 Ryder Quintanilla MD [address] [place] [address] PCP - General Neurology 12/16/23 Derick Roberson DO [address] [place] [address] Primary Staff Physician Cardiology 12/28/21 [facility] [address] [facility], [address] Referring 12/16/23 Nery Stahl MD [address] [place] [address] Neurology 07/28/24 documented as of this encounter
--- OUTSIDE RECORDS SUMMARY | 2025-06-06 11:33 | XMS_ITS | Encounter Summary ---
Author Organization [facility] Address [address] [place] [address] Care Team Providers Care Poultry Killer Name Role Phone Michael Bobby DO, David Grant Primary Care Pro vider Rosie Calzada MD Unavailable [phone] Ryder Quintanilla MD Unavailable Derick Roberson DO Unavailable Ryder Quintanilla MD Primary Care Provider [facility] [place] [facility] Unavailable Unavailable Nery Stahl MD Unavailable Source Comments In the event this information is protected by the Federal Confidentiality of Alcohol and Drug AbusePatient Records regulations: The Federal rules restrict any use of the information to criminally investigate or prosecute any alcohol or drug abuse patient.[facility] Encounter Details Date Type Department Care Team (Late st Contact Info) Description 03/04/2022 Patient Msg Neurology [address] [place] [address] Provider, Ccf Important Medication Instructions for Neuro Autonomic Testing 04/02 Social History Tobacco Use Types Packs/Day Years [...] N ot on file 06/14/2021 Data from: https://www.neighborhoodatlas.medicine.[facility].edu/. Last address used for calculation Not [...] 3:00 PM EDT Office Visit Neurology [address] [phone] Tristan Diaz MD [address] [place] [address] Muscle Weakness documented as of this encounter Visit Diagnoses Not on filedocumented in this encounter Care Teams Poultry Killer Relationship Specialty Start Date End Date Primitivo Rodriguez Jr., DO [address] [place] [address] PCP - General Rheumatology 12/28/21 12/15/23 Rosie Calzada MD [address] [place] [phone] PCP - Endocrinology Endocrinology 12/28/21 Ryder Quintanilla MD [address] [facility] [address] [place] [phone] PCP - Resident Neurology 12/28/21 07/27/24 Ryder Quintanilla MD [address] [place] [address] PCP - General Neurology 12/16/23 Derick Roberson DO [address] [place] [address] Primary Staff Physician Cardiology 12/28/21 [facility] [place] [facility] [address] [place], [address] Referring 12/16/23 Nery Stahl MD [address] [place] [address] Neurology 07/28/24 documented as of this encounter
--- NOTE | 2025-06-06 11:37 | CT_ITS ---
The [address] [address] Patient Name: SHIMA FELICIANO MRN: [id number] date: 1975 Sex: F Assigned Patient Location: ED.MAIN Current Patient Location: ED.MAIN Accession/Order Number: [id number] Exam Date: 06/06/2025 12:40 Report Date: 06/06/2025 12:42 At the request of: KAELYN CHEW MD Procedure: CT head/brain wo con CT head/brain wo con 06/06/2025 12:36 PM SIGNS AND SYMPTOMS: ^possible seizure, headache, nausea, vomiting TECHNIQUE:Multi-detector CT axial slices of the brain were obtained without IV contrast. CT was performed with one or more of the following dose reduction techniques: Automated exposure control, adjustment of the mA and/or kV according to patient size, or use of iterative reconstruction technique. COMPARISON: None. FINDINGS: There is no shift of the midline structures, acute intracranial bleeding, mass effects, or evidence of acute ischemia. Atherosclerotic changes are noted in the intracranial segments of the internal carotid arteries. The ventricular system is normal in size. The brainstem and the cerebellum are unremarkable. The visualized intraorbital contents, the visualized paranasal sinuses, and the infratemporal soft tissues show no acute abnormality. The osseous structures in the skull base and the calvarium show no abnormality. CT/CT head/brain wo con IMPRESSION: Normal noncontrasted CT brain. Impression dictated by: Jamal Morales M.D. 06/06/2025 12:42 PM Dictation Location: [place] [address] Electronically authenticated by: [id number] Y Date: 06/06/2025 12:42
[2025-06-06 11:40] VITALS: PULSE 58; O2SAT 100
[2025-06-06 11:44] LABS: Hematocrit 35.4 % (36.0-48.0); Hemoglobin 11.7 g/dL (12.0-16.0); Immature Granulocytes Abs Auto 0.03 10^3/uL (0.00-0.03); Immature Granulocytes Pct Auto 0.3 % (0.0-0.5); Lymphocytes Absolute Auto 2.2 10^3/uL (1.2-3.8); Mean Corpuscular HGB Conc 33.1 g/dL (29.9-35.2); Mean Corpuscular Hemoglobin 30.0 pg (26.7-34.0); Mean Corpuscular Volume 90.8 fL (81.0-99.0); Platelet Count 358 10^3/uL (150-450); Red Blood Count 3.90 10^6/uL (4.20-5.40); White Blood Count 8.9 10^3/uL (4.0-11.0)
[2025-06-06 11:45] VITALS: PULSE 70
--- NOTE | 2025-06-06 11:46 | ED_ITS ---
HPI - Seizure General Chief Complaint: Seizure Stated Complaint: POSSIBLE SEIZURES Time Seen by Provider: 06/06/25 11:30 Source: patient Mode of arrival: ambulance Limitations: no limitations History of Present Illness HPI Narrative: The patient is a 59-year-old female with history of depression as hypothyroidism and psoriatic arthritis is coming to the ER after she started having a seizure according to her by the EMS, called the EMS saying that for the last week she has been having absence seizures and although she did call her neurologist that she follow-up with her MS, the patient is not on any medication for seizure disorder The patient also is complaining of frontal headache No other concerns when I presented to evaluate the patient she was emotional complaining of headache As per the EMS the patient have exotic spider monkey and she told them that they are going to take it from her (animal control) She mention also having fasciculation in her tongue but she did not have them at the time of evaluation Related Data Previous Rx's ?Medication ?Instructions ?Recorded hydroxyzine HCl 25 mg tablet 25 mg PO Q8H PRN anxiety #10 tabs 06/06/25 Allergies Allergy/AdvReac Type Severity Reaction Status Date / Time No Known Drug Allergies Allergy Verified 06/06/25 11:26 Review of Systems ROS Status of ROS 10 or more systems reviewed and unremark able except as noted in history and below Exam Narrative Exam Narrative: Nurses notes and vital signs reviewed and patient is not hypoxic. General: Well-appearing and in no apparent distress. Skin: Warm, dry, no pallor noted. No rash. Head: Normocephalic, atraumatic. Neck: Supple, non-tender. Eye: Pupils are equal, round and EOMI. No scleral icterus. Ears, Nose, Mouth, and Throat: Normal tongue examination as well as airway Cardiovascular: Regular Rate and Rhythm without murmur, gallop or rub. Respiratory: No accessory muscle use or respiratory distress. Lungs are clear to auscultation, no wheezing, rales or rhonchi Chest Wall: no tenderness Back: No midline thoracic or lumbar vertebral tenderness. No CVA tenderness Musculoskeletal: normal ROM, no calf or popliteal tenderness, no lower extremity edema/swelling GI: Abdomen is soft, non-distended. Normal bowel sounds. No masses appreciated. No tenderness to palpation. No rebound, guarding, or rigidity noted. Neurological: A&O x4. No cranial nerve dysfunction observed. Constitutional Vital Signs, click to edit/add: Last Vital Signs Temp 97.9 F 06/06/25 11:27 Pulse 72 06/06/25 13:23 Resp 16 06/06/25 13:23 BP 96/65 06/06/25 13:23 Pulse Ox 96 06/06/25 13:23 O2 Del Method Room Air 06/06/25 13:23 Course Vital Signs Vital signs: Vital Signs Blood Pressure 156/69 H 06/06/25 11:26 Temperature 97.9 F 06/06/25 11:27 Pulse Rate 72 06/06/25 13:23 Respiratory Rate 16 06/06/25 13:23 Blood Pressure 96/65 06/06/25 13:23 Pulse Oximetry 96 06/06/25 13:23 Oxygen Delivery Method Room Air 06/06/25 13:23 MDM - Seizure MDM Narrative Medical decision making narrative: Patient EKG showing sinus rhythm with a heart rate of [address] elevation or depression Patient CBC and chemistry showed no acute pathology except for some mild hypokalemia that was corrected with p.o. potassium The patient also was treated with the Toradol initially in addition to Compazine and Benadryl for migraine The patient is feeling better after initial treatment admit that she is going through a lot of stress after they recently are going to take her spider monkey from her Patient was given 1 dose of Ativan in the ER in addition to discharge home with hydroxyzine as initial management of anxiety but she is to follow-up with her primary care doctor and her psychiatrist for further evaluation The patient presentation mostly secondary to pseudoseizures secondary to stress reaction The patient is to follow up with primary care physician in next 2-3 days or to return to the emergency department should any of the signs or symptoms worsen or new symptoms develop. The patient agrees with the following Diagnosis and Treatment plan and the patient will be discharged home. Lab Data Labs: Lab Results 06/06/25 Range/Units 11:38 WBC 8.9 (4.0-11.0) 10^3/uL RBC 3.90 L (4.20-5.40) 10^6/uL Hgb 11.7 L (12.0-16.0) g/dL Hct 35.4 L (36.0-48.0) % MCV 90.8 (81.0-99.0) fL MCH 30.0 (26.7-34.0) pg MCHC 33.1 (29.9-35.2) g/dL RDW 13.5 (11.0-15.0) % Plt Count 358 (150-450) 10^3/uL MPV 10.1 (9.5-13.5) fL Neut % (Auto) 69.2 (43.0-75.0) % Lymph % (Auto) 24.9 (20.5-60.0) % Steele % (Auto) 4.4 (1.7-12.0) % Eos % (Auto) 0.9 (0.9-7.0) % Baso % (Auto) 0.3 (0.2-2.0) % Neut # (Auto) 6.1 (1.4-6.5) 10^3/uL Lymph # (Auto) 2.2 (1.2-3.8) 10^3/uL Steele # (Auto) 0.4 (0.3-0.8) 10^3/uL Eos # (Auto) 0.1 (0.0-0.7) 10^3/uL Baso # (Auto) 0.0 (0.0-0.1) 10^3/uL Abs Immat Gran (auto) 0.03 (0.00-0.03) 10^3/uL Imm/Tot Granulo (auto) 0.3 (0.0-0.5) % Sodium 142 (136-145) mmol/L Potassium 3.3 L (3.5-5.1) mmol/L Chloride 106 (98-107) mmol/L Carbon Dioxide 28.7 (21.0-32.0) mmol/L Anion Gap 10.6 BUN 9.0 (7.0-18.0) mg/dL Creatinine 0.74 (0.55-1.02) mg/dL Est GFR ( Amer) >60 (>=60 mL/min/1.73m^2) Est GFR (Non-Af Amer) >60 (>=60 mL/min/1.73m^2) BUN/Creatinine Ratio 12.2 Glucose 105 (74-106) mg/dL Calcium 9.1 (8.5-10.1) mg/dL Total Bilirubin 0.2 (0.2-1.0) mg/dL AST 9 L (15-37) U/L ALT 18 (14-59) U/L Alkaline Phosphatase 73 (46-116) U/L Troponin I High Sens <4.0 L (4.0-51.3) pg/mL Total Protein 7.0 (6.4-8.2) g/dL Albumin 3.2 L (3.4-5.0) g/dL Globulin 3.8 g/dL Albumin/Globulin Ratio 0.8 Discharge Plan Discharge Chief Complaint: Seizure Clinical Impression: Stress reaction, Hypokalemia Patient Disposition: Home, Self-Care Time of Disposition Decision: 13:02 Condition: Good Prescriptions / Home Meds: New hydroxyzine HCl 25 mg tablet 25 mg PO Q8H PRN (Reason: anxiety) Qty: 10 0RF Print Language: [place] Instructions: Hypokalemia (ED), Stress (ED) Referrals: Physician,Non-Staff, MD [Primary Care Provider] - 1 week Discharge Date/Time: 06/06/25 13:35
[2025-06-06] MEDS: KETOROLAC TROMETHAMINE 30 MG/ML VIAL 15 MG IVP (11:54)
[2025-06-06] MEDS: PROCHLORPERAZINE 10 MG/2 ML VIAL IV (11:54)
[2025-06-06 12:05] LABS: Alanine Aminotransferase 18 U/L (14-59); Albumin Globulin Ratio 0.8; Albumin Level 3.2 g/dL (3.4-5.0); Alkaline Phosphatase 73 U/L (46-116); Anion Gap 10.6; Aspartate Amino Transferase 9 U/L (15-37); Blood Urea Nitrogen 9.0 mg/dL (7.0-18.0); Calcium 9.1 mg/dL (8.5-10.1); Carbon Dioxide 28.7 mmol/L (21.0-32.0); Chloride 106 mmol/L (98-107); Estimated GFR (African America >60 (>=60 mL/min/1.73m^2); Estimated GFR (Non-African Ame >60 (>=60 mL/min/1.73m^2); Globulin 3.8 g/dL; Glucose 105 mg/dL (74-106); Potassium 3.3 mmol/L (3.5-5.1); Sodium 142 mmol/L (136-145); Total Protein 7.0 g/dL (6.4-8.2)
[2025-06-06] MEDS: DIPHENHYDRAMINE HCL 50 MG/ML VIAL 25 MG IVP (12:23)
[2025-06-06] MEDS: METHYLPREDNISOLONE SOD SUCC PF 40 MG/ML VIAL IVP (12:23)
[2025-06-06] MEDS: POTASSIUM BICARBONATE/CIT 25 MEQ TABLET EFF PO (13:11)
[2025-06-06] MEDS: LORAZEPAM 0.5 MG TABLET PO (13:11)
[2025-06-06 13:23] VITALS: BP 96/65; PULSE 72; O2SAT 96
== END 2025-06-06 13:35 | disposition home or self-care (01) ==
PROVIDERS: Emergency Provider Emergency Medicine
DX: F43.9 Reaction to severe stress, unspecified (principal); E87.6 Hypokalemia; F32.A Depression, unspecified; E03.9 Hypothyroidism, unspecified; L40.50 Arthropathic psoriasis, unspecified; G35 Multiple sclerosis; G43.909 Migraine, unspecified, not intractable, without status migrainosus
CPT/HCPCS: 36415; 70450; 80053; 84484; 85025; 93005; 96374; 96375; 99285; J0780; J1200; J1885; J2919